=== PATIENT | female | born 1990 | race Caucasian/White ===

== ENCOUNTER → 2017-02-22 | Outpatient (CLI) | payer MEDICAID | END | disposition home or self-care (01) | LOC: MW.CHFP 14:40 | PROVIDERS: ATTEND Student in an Organized Health Care Education/Training Program | DX: R82.71 Bacteriuria (principal) | CPT/HCPCS: 81001 ==

== ENCOUNTER 2017-08-10 07:13 | Day surgery (SDC) | payer MEDICAID ==
[~2017-08-10 07:13] MED LIST: Lactated Ringers 1,000 ML IV SCH; ceFAZolin 2 GM in Premix Bag 1 BAG IV ONE
[2017-08-10] MEDS ORDERED: Ondansetron 4 MG/2 ML SDV ONE (07:36)
[2017-08-10] MEDS ORDERED: Propofol 200 MG/20 ML SDV ONE (07:37)
[2017-08-10] MEDS ORDERED: Midazolam 1 MG/ML 2 ML SDV ONE (07:37)
[2017-08-10] MEDS ORDERED: fentaNYL 100 MCG/2 ML SDV ONE ×2 (07:37→09:52)
[2017-08-10] MEDS ORDERED: Scopolamine 1.5 MG Transdermal Patch TRDERM PRN (08:21)
--- NOTE | 2017-08-10 08:22 | PCM.PREANE ---
Preanesthetic Assessment - Anesthesia/Transfusion/Family Hx Anesthesia History: Prior Anesthesia Without Reaction Family History of Anesthesia Reaction: No Transfusion History: No Prior Transfusion(s) - Review of Systems General: No Symptoms Pulmonary: No Symptoms Cardiovascular: No Symptoms Gastrointestinal: No Symptoms Neurological: No Symptoms Other: Reports: None - Physical Assessment NPO Status Date: 08/09/17 O2 Sat by Pulse Oximetry: 97 Respiratory Rate: 16 Vital Signs: Last Vital Signs Temp 36.2 C 08/10/17 07:28 Pulse 76 08/10/17 07:28 Resp 16 08/10/17 07:28 BP 114/62 08/10/17 07:28 Pulse Ox 97 08/10/17 07:28 Height: 1.63 m Weight: 78.471 kg ASA Class: 2 Mental Status: Alert & Oriented x3 Airway Class: Mallampati = 1 Dentition: Reports: Normal Dentition ROM/Head Extension: Full Lungs: Clear to Auscultation, Normal Respiratory Effort Cardiovascular: Regular Rate, Regular Rhythm - Lab Values: Laboratory Last Values Urine HCG, Qual NEGATIVE (NEGATIVE) 08/10/17 07:16 - Allergies Allergies/Adverse Reactions: Allergies Allergy/AdvReac Type Severity Reaction Status Date / Time tramadol Allergy Itching Verified 05/15/16 19:42 - Anesthesia Plan Pre-Op Medication Ordered: Other (scop) - Acknowledgements Anesthesia Type Planned: General Anesthesia Pt an Appropriate Candidate for the Planned Anesthesia: Yes Alternatives and Risks of Anesthesia Discussed w Pt/Guardian: Yes Pt/Guardian Understands and Agrees with Anesthesia Plan: Yes PreAnesthesia Questionnaire HEENT History: Reports: Other (See Below) Other HEENT History: wears glasses/contacts Cardiovascular History: Reports: None Respiratory History: Reports: None Gastrointestinal History: Reports: GERD 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: Musculoskeletal History: Reports: Back Pain, Chronic Neurological History: Reports: None Psychiatric History: Reports: None Endocrine/Metabolic History: Reports: None Hematologic History: Reports: None Oncologic (Cancer) History: Reports: None Dermatologic History: Reports: None - Infectious Disease History Infectious Disease History: Reports: None - Past Surgical History Head Surgeries/Procedures: Reports: None HEENT Surgical History: Reports: Oral Surgery, Tonsillectomy Musculoskeletal Surgical History: Reports: Other (See Below) Other Musculoskeletal Surgeries/Procedures:: sprained tendon on left ring finger - SUBSTANCE USE Smoking Status *Q: Current Every Day Smoker Tobacco Use Within Last Twelve Months: Cigarettes Days Per Week of Alcohol Use: 0 Recreational Drug Use History: No - HOME MEDS Home Medications: Home Meds Acetaminophen with Codeine [Tylenol with Codeine #3 Tablet] 1 - 2 tab PO ASDIRECTED PRN 08/06/17 [History] - CURRENT (IN HOUSE) MEDS Current Meds: Current Medications Lactated Ringer's (Ringers, Lactated) 1,000 mls @ 125 mls/hr IV ASDIRECTED KEMAL Last Admin: 08/10/17 07:25 Dose: 125 mls/hr Discontinued Medications Fentanyl (Sublimaze) Confirm Administered Dose 200 mcg .ROUTE .STK-MED ONE Stop: 08/10/17 07:38 Cefazolin Sodium/Dextrose 2 gm (/ Premix) 50 mls @ 100 mls/hr IV ONETIME ONE Stop: 08/10/17 05:29 Lidocaine HCl (Xylocaine-Mpf 1%) Confirm Administered Dose 5 ml .ROUTE .STK-MED ONE Stop: 08/10/17 07:37 Midazolam HCl (Versed 1 Mg/Ml) Confirm Administered Dose 2 mg .ROUTE .STK-MED ONE Stop: 08/10/17 07:38 Ondansetron HCl (Zofran) Confirm Administered Dose 4 mg .ROUTE .STK-MED ONE Stop: 08/10/17 07:37 Propofol (Diprivan 20 Ml) Confirm Administered Dose 200 mg .ROUTE .STK-MED ONE Stop: 08/10/17 07:38
[2017-08-10] MEDS ORDERED: Acetaminophen/oxyCODONE 325-5 MG Tab PO ONE (08:58)
[2017-08-10] MEDS ORDERED: Rocuronium 10 MG/ML 10 ML Syringe ONE (09:01)
[2017-08-10] MEDS ORDERED: Succinylcholine/Normal Saline 200 MG/10 ML Syringe ONE (09:01)
[2017-08-10] MEDS ORDERED: ceFAZolin 1 GM Vial ONE (09:50)
[2017-08-10] MEDS ORDERED: Dexamethasone 4 MG/ML 5 ML MDV ONE (09:51)
[2017-08-10] MEDS ORDERED: Neostigmine Methylsulfate 1 MG/ML 5 ML Syringe ONE (09:57)
[2017-08-10] MEDS ORDERED: Ketorolac 30 MG/ML SDV ONE (10:02)
--- NOTE | 2017-08-10 10:34 | PCM.OPNOTE ---
- General Post-Op/Procedure Note Date of Surgery/Procedure: 08/10/17 Operative Procedure(s): lap chico Findings: gb is yellow and green, cw chronic cholecystitis, wall is not thickened;dict [id number] Pre Op Diagnosis: biliary dyskinesia Post-Op Diagnosis: chronic cholecystitis Anesthesia Technique: General ET Tube Primary Surgeon: Rex Perez Pathology: sent Complications: None Condition: Good
[2017-08-10] MEDS ORDERED: Acetaminophen 1,000 MG in Premix Bag 1 BAG IV ONE (11:06)
--- NOTE | 2017-08-10 11:06 | PCM.POSTAN ---
POST ANESTHESIA ASSESSMENT - MENTAL STATUS Mental Status: Alert, Oriented - RESPIRATORY Respiratory Status: Respiratory Rate WNL, Airway Patent, O2 Saturation Stable - CARDIOVASCULAR CV Status: Pulse Rate WNL, Blood Pressure Stable - GASTROINTESTINAL GI Status: No Symptoms - POST OP HYDRATION Hydration Status: Adequate & Stable
--- NOTE | 2017-08-10 11:53 | OR ---
SURGEON: Rex Perez MD DATE OF PROCEDURE: 08/10/2017 PREOPERATIVE DIAGNOSIS: Biliary dyskinesia. POSTOPERATIVE DIAGNOSIS: Chronic cholecystitis. COMPLICATIONS: None. PROCEDURE PERFORMED: Laparoscopic cholecystectomy. FINDINGS: Gallbladder is yellow and green consistent with chronic cholecystitis. Wall is not thickened. PROCEDURE IN DETAIL: The patient was taken to the operating room and placed in the supine position. After the intubation of general endotracheal anesthesia, the patient's abdomen was prepped and draped in the usual sterile fashion. Using Moovlyview, a 12 mm trocar was placed supraumbilically and then followed with pneumoperitoneum. A 5 mm trocar was placed in the epigastrium and two 5 mm trocars placed in the right upper quadrant. The placement of the last three trocars was done under direct video supervision. Upon gaining entrance to the abdominal cavity, an extensive examination was then performed. The gallbladder was located and identified and retracted to the dome of the liver at the triangle of Calot. The cystic duct was clipped three more times and then using the endoscopic clip, was transected with placement of the endoscopic clip and transection was performed with care, ensuring the posterior prong of the instruments were clearly visualized prior to exercising the procedure. The gallbladder was dissected using electrocautery out of the liver bed and then removed using endoscopic bag through the umbilical site. The gallbladder was removed en bloc and there was no bile spillage and this was then followed with extensive irrigation until the bile was clear from blood and bile. The trocars were then removed under direct video supervision. The 12 mm umbilical site was then closed with deep stitches using 0 Vicryl followed with proximal stitches using 3-0 Vicryl and Dermabond. The other three trocar sites were closed with 3-0 Vicryl followed with approximation of skin with Dermabond. The patient was then awakened and extubated and transferred to the recovery room in hemodynamically stable condition. At the conclusion of the surgery, before closing the abdominal wound, instrument count and sponge count were done and were correct. The patient tolerated the procedure well and there were no intraoperative complications. Dr. Perez was present through the whole procedure. Just before surgery, a timeout was called. The patient was identified and procedure identified and procedure started. At the conclusion of the surgery, Surgicel was placed for hemostasis prior to closing the port. As always, thank you for the kind referral. SAULO TUCKER /[id number]
--- NOTE | 2017-08-10 11:56 | PCM48HPAN ---
Post Anesthesia Note - EVALUATION WITHIN 48HRS OF ANESTHETIC Vital Signs in Normal Range: Yes Patient Participated in Evaluation: Yes Respiratory Function Stable: Yes Airway Patent: Yes Cardiovascular Function Stable: Yes Hydration Status Stable: Yes Pain Control Satisfactory: Yes Nausea and Vomiting Control Satisfactory: Yes Mental Status Recovered: Yes
[2017-08-10 11:57] VITALS: BP 114/74
== END 2017-08-10 12:00 | disposition home or self-care (01) ==
LOC: MW.SDS 07:13
PROVIDERS: ATTEND Surgery
DX: K81.1 Chronic cholecystitis (principal); F17.210 Nicotine dependence, cigarettes, uncomplicated; Z86.19 Personal history of other infectious and parasitic diseases; Z87.442 Personal history of urinary calculi; Z88.8 Allergy status to other drugs, medicaments and biological substances; Z90.89 Acquired absence of other organs; Z98.890 Other specified postprocedural states
CPT/HCPCS: 47562; 81025; A9270; J0690; J1100; J1885; J2250; J2405; J3010; J7120; 00790; 88304; J2704

== ENCOUNTER 2017-12-18 08:51 | Emergency (ER) | payer MEDICAID ==
[2017-12-18] MEDS ORDERED: Sodium Chloride 0.9% 1,000 ML IV ONE (08:56)
[2017-12-18] MEDS ORDERED: Ondansetron 4 MG/2 ML SDV IVPUSH ONE (08:56)
--- NOTE | 2017-12-18 08:58 | EDM.PDOC ---
ED HPI GENERAL MEDICAL PROBLEM - General Chief Complaint: Abdominal Pain Stated Complaint: abdominal and back pain Time Seen by Provider: 12/18/17 08:57 Source of Information: Reports: Patient - History of Present Illness INITIAL COMMENTS - FREE TEXT/NARRATIVE: HISTORY AND PHYSICAL: History of present illness: [ Patient presents with abdominal pain that began this morning she has history of recent cholecystectomy over the last few months performed by Dr. Duran here in [facility]. This morning she awoke she has not eaten anything today she states that she had some right and left upper quadrant pain was very severe upon awakening 8 out of 10 nonradiating it has improved since to a 4 out of 10 no fever nausea vomiting diarrhea constipation chest pain shortness breath headache dizziness palpitation no bowel or urine symptoms ] Review of systems: As per history of present illness and below otherwise all systems reviewed and negative. Past medical history: As per history of present illness and as reviewed below otherwise noncontributory. Surgical history: As per history of present illness and as reviewed below otherwise noncontributory. Social history: No reported history of drug or alcohol abuse. Family history: As per history of present illness and as reviewed below otherwise noncontributory. Physical exam: HEENT: Atraumatic, normocephalic, pupils reactive, negative for conjunctival pallor or scleral icterus, mucous membranes moist, throat clear, neck supple, nontender, trachea midline. Lungs: Clear to auscultation, breath sounds equal bilaterally, chest nontender. Heart: S1S2, regular, negative for clicks, rubs, or JVD. Abdomen: Soft, nondistended, nontender. Negative for masses or hepatosplenomegaly. Negative for costovertebral tenderness. Pelvis: Stable nontender. Genitourinary: Deferred. Rectal: Deferred. Extremities: Atraumatic, negative for cords or calf pain. Neurovascular unremarkable. Neuro: Awake, alert, oriented. Cranial nerves II through XII unremarkable. Cerebellum unremarkable. Motor and sensory unremarkable throughout. Exam nonfocal. Diagnostics: [CBC CMP UA hCG CT abdomen pelvis with contrast ] Therapeutics: [Liter normal saline bolus Zofran 8 mg IV Toradol 30 mg IV ] Impression: [Colicky Abdominal pain Ovarian cyst on the right] Definitive disposition and diagnosis as appropriate pending reevaluation and review of above. upper abdomen Pain Score (Numeric/FACES): 4 - Related Data Allergies Allergy/AdvReac Type Severity Reaction Status Date / Time tramadol Allergy Itching Verified 12/18/17 09:01 Home Meds: Home Meds . 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: Musculoskeletal History: Reports: Back Pain, Chronic Neurological History: Reports: None Psychiatric History: Reports: None Endocrine/Metabolic History: Reports: None Hematologic History: Reports: None Oncologic (Cancer) History: Reports: None Dermatologic History: Reports: None - Infectious Disease History Infectious Disease History: Reports: None - Past Surgical History Head Surgeries/Procedures: Reports: None HEENT Surgical History: Reports: Oral Surgery, Tonsillectomy Musculoskeletal Surgical History: Reports: Other (See Below) Other Musculoskeletal Surgeries/Procedures:: sprained tendon on left ring finger Social & Family History - Tobacco Use Smoking Status *Q: Current Every Day Smoker Years of Tobacco use: 9 - Alcohol Use Days Per Week of Alcohol Use: 0 - Recreational Drug Use Recreational Drug Use: No ED ROS GENERAL - Review of Systems Review Of Systems: ROS reveals no pertinent complaints other than HPI. ED EXAM, GENERAL - Physical Exam Exam: See Below Course - Vital Signs Last Recorded V/S: Last Vital Signs Temp 96.8 F 12/18/17 08:58 Pulse 63 12/18/17 08:58 Resp 18 12/18/17 08:58 BP 126/81 12/18/17 08:58 Pulse Ox 97 12/18/17 08:58 - Orders/Labs/Meds Orders: Active Orders 24 hr Category Date Time Status Abdomen Pelvis w Cont [CT] Stat Exams 12/18/17 08:56 Taken Labs: Laboratory Tests 12/18/17 12/18/17 12/18/17 Range/Units 09:00 09:00 09:08 WBC 5.57 (4.0-11.0) K/uL RBC 4.31 (4.30-5.90) M/uL Hgb 14.1 (12.0-16.0) g/dL Hct 41.3 (36.0-46.0) % MCV 95.8 (80.0-98.0) fL MCH 32.7 H (27.0-32.0) pg MCHC 34.1 (31.0-37.0) g/dL RDW Std Deviation 42.7 (28.0-62.0) fl RDW Coeff of Katharine 12 (11.0-15.0) % Plt Count 237 (150-400) K/uL MPV 9.40 (7.40-12.00) fL Neut % (Auto) 60.4 (48.0-80.0) % Lymph % (Auto) 22.8 (16.0-40.0) % Loving % (Auto) 14.4 (0.0-15.0) % Eos % (Auto) 2.2 (0.0-7.0) % Baso % (Auto) 0.2 (0.0-1.5) % Neut # (Auto) 3.4 (1.4-5.7) K/uL Lymph # (Auto) 1.3 (0.6-2.4) K/uL Loving # (Auto) 0.8 (0.0-0.8) K/uL Eos # (Auto) 0.1 (0.0-0.7) K/uL Baso # (Auto) 0.0 (0.0-0.1) K/uL Nucleated RBC % 0.0 /100WBC Nucleated RBCs # 0 K/uL Sodium (136-146) mmol/L Potassium (3.5-5.1) mmol/L Chloride (98-110) mmol/L Carbon Dioxide (21-31) mmol/L BUN (6.0-23.0) mg/dL Creatinine (0.6-1.5) mg/dL Est Cr Clr Drug Dosing mL/min Estimated GFR (MDRD) ml/min Glucose (60-110) mg/dL Calcium (8.8-10.8) mg/dL Total Bilirubin (0.1-1.5) mg/dL AST (5-40) IU/L ALT (8-54) IU/L Alkaline Phosphatase (40-150) Total Protein (6.0-8.0) g/dL Albumin (3.5-5.0) g/dL Globulin (2.0-3.5) g/dL Albumin/Globulin Ratio (1.3-2.8) Amylase (10-90) U/L Lipase (7-80) U/L Urine Color YELLOW Urine Appearance CLEAR Urine pH 6.5 (5.0-8.0) Ur Specific Singer 1.020 (1.001-1.035) Urine Protein NEGATIVE (NEGATIVE) mg/dL Urine Glucose (UA) NEGATIVE (NEGATIVE) mg/dL Urine Ketones NEGATIVE (NEGATIVE) mg/dL Urine Occult Blood NEGATIVE (NEGATIVE) Urine Nitrite NEGATIVE (NEGATIVE) Urine Bilirubin NEGATIVE (NEGATIVE) Urine Urobilinogen 0.2 (<2.0) EU/dL Ur Leukocyte Esterase NEGATIVE (NEGATIVE) Urine RBC 0-3 (0-2/HPF) Urine WBC 0-1 (0-5/HPF) Ur Epithelial Cells RARE (NONE-FEW) Urine Bacteria FEW (NEGATIVE) Urine HCG, Qual NEGATIVE (NEGATIVE) 12/18/17 Range/Units 09:08 WBC (4.0-11.0) K/uL RBC (4.30-5.90) M/uL Hgb (12.0-16.0) g/dL Hct (36.0-46.0) % MCV (80.0-98.0) fL MCH (27.0-32.0) pg MCHC (31.0-37.0) g/dL RDW Std Deviation (28.0-62.0) fl RDW Coeff of Katharine (11.0-15.0) % Plt Count (150-400) K/uL MPV (7.40-12.00) fL Neut % (Auto) (48.0-80.0) % Lymph % (Auto) (16.0-40.0) % Loving % (Auto) (0.0-15.0) % Eos % (Auto) (0.0-7.0) % Baso % (Auto) (0.0-1.5) % Neut # (Auto) (1.4-5.7) K/uL Lymph # (Auto) (0.6-2.4) K/uL Loving # (Auto) (0.0-0.8) K/uL Eos # (Auto) (0.0-0.7) K/uL Baso # (Auto) (0.0-0.1) K/uL Nucleated RBC % /100WBC Nucleated RBCs # K/uL Sodium 138 (136-146) mmol/L Potassium 4.1 (3.5-5.1) mmol/L Chloride 108 (98-110) mmol/L Carbon Dioxide 21 (21-31) mmol/L BUN 12 (6.0-23.0) mg/dL Creatinine 0.7 (0.6-1.5) mg/dL Est Cr Clr Drug Dosing 102.40 mL/min Estimated GFR (MDRD) > 60.0 ml/min Glucose 81 (60-110) mg/dL Calcium 9.1 (8.8-10.8) mg/dL Total Bilirubin 1.0 (0.1-1.5) mg/dL AST 24 (5-40) IU/L ALT 24 (8-54) IU/L Alkaline Phosphatase 66 (40-150) Total Protein 6.7 (6.0-8.0) g/dL Albumin 4.3 (3.5-5.0) g/dL Globulin 2.4 (2.0-3.5) g/dL Albumin/Globulin Ratio 1.8 (1.3-2.8) Amylase 47 (10-90) U/L Lipase 12 (7-80) U/L Urine Color Urine Appearance Urine pH (5.0-8.0) Ur Specific Singer (1.001-1.035) Urine Protein (NEGATIVE) mg/dL Urine Glucose (UA) (NEGATIVE) mg/dL Urine Ketones (NEGATIVE) mg/dL Urine Occult Blood (NEGATIVE) Urine Nitrite (NEGATIVE) Urine Bilirubin (NEGATIVE) Urine Urobilinogen (<2.0) EU/dL Ur Leukocyte Esterase (NEGATIVE) Urine RBC (0-2/HPF) Urine WBC (0-5/HPF) Ur Epithelial Cells (NONE-FEW) Urine Bacteria (NEGATIVE) Urine HCG, Qual (NEGATIVE) Meds: Medications Discontinued Medications Generic Name Dose Route Start Last Admin Trade Name Freq PRN Reason Stop Dose Admin Sodium Chloride 1,000 mls @ 999 mls/hr 12/18/17 08:56 12/18/17 09:13 Normal Saline IV 12/18/17 09:56 999 mls/hr STAT ONE Administration Ondansetron HCl 8 mg 12/18/17 08:56 12/18/17 09:13 Zofran IVPUSH 12/18/17 08:57 8 mg ONETIME ONE Administration Departure - Departure Time of Disposition: 11:04 Disposition: Home, Self-Care 01 Condition: Good Clinical Impression: Abdominal pain - Discharge Information Referrals: Diana Beebe NP [Primary Care Provider] - Forms: ED Department Discharge Additional Instructions: Toradol Reglan Medications as directed Gas-X 120 mg 4 times daily as needed may benefit 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 This information is to outline your options for follow-up care. We provide all patients seen in our emergency department with a follow-up referral. The need for follow-up, as well as the timing and circumstances, are variable depending upon the specifics of your emergency department visit. If you don't have a primary care physician on staff, we will provide you with a referral. We always advise you to contact your personal physician following an emergency department visit to inform them of the circumstance of the visit and for follow-up with them and/or the need for any referrals to a consulting specialist. The emergency department will also refer you to a specialist when appropriate. This referral assures that you have the opportunity for follow-up care with a specialist. All of these measure are taken in an effort to provide you with optimal care, which includes your follow-up. Under all circumstances we always encourage you to contact your private physician who remains a resource for coordinating your care. When calling for follow-up care, please make the office aware that this follow-up is from your recent emergency room visit. If for any reason you are refused follow-up, please contact the [facility] emergency department at and asked to speak to the emergency department charge nurse. - My Orders Last 24 Hours: My Active Orders 12/18/17 08:56 Abdomen Pelvis w Cont [CT] Stat - Assessment/Plan Last 24 Hours: My Active Orders 12/18/17 08:56 Abdomen Pelvis w Cont [CT] Stat
[2017-12-18 09:38] LABS: CHLORIDE,CL 108 mmol/L (98-110); SODIUM,NA 138 mmol/L (136-146)
[2017-12-18 11:19] VITALS: BP 111/77
--- NOTE | 2017-12-20 17:12 | CT ---
EXAM DATE: 12/18/17 PATIENT'S AGE: 27 Patient: LIBORIO HAYDEN Facility: [place], [place] Site . Site : 1990 Study: CT Abdomen/Pelvis [id number]/[id number] 10:24:06 AM Ordering Physician: Doctor Murdock Final Report: INDICATION: ABD/PEL PAIN BILATERALLY INDICATION: Abdominal pain bilaterally. TECHNIQUE: 3 mm axial imaging has been performed through the abdomen and pelvis after IV contrast. Sagittal and coronal reconstructions have been obtained. Comparison: 06/22/2017 Findings: In the left lung base there is some mild posterior increased density favored represent some dependent atelectasis. The liver, spleen, pancreas, bilateral adrenal glands are within normal limits. The kidneys demonstrate symmetric enhancement bilaterally. The retrocrural region and retroperitoneum demonstrate no significant lymphadenopathy. Iliac harvinder chain and groin demonstrate no significant lymphadenopathy. There is no evidence for bowel obstruction. Air-filled partially visualized appendix is identified and images 100-103. IUD is in place. Enlargement of the right ovary persists with a 4.7 x 2.7 cm low-dense cystic lesion present. This is slightly smaller. Left ovary is unremarkable. Significant retained stool identified within the colon. No evidence for bowel obstruction. No significant free fluid is seen. No abscess or free air is seen. IMPRESSION: 1. There is persistent prominence of the right ovary at 4.7 x 2.7 cm. This is slightly smaller in size from the prior study of May 2017. 2. IUD is in place. 3. No evidence for bowel obstruction. 4. The upper abdominal organ survey is within normal limits. Dictated by Dominick Reyes MD @ 12/18/2017 10:54:35 AM Dictated by: Dominick Reyes MD @ 12/18/2017 10:54:40 (Electronic Signature) Report Signed by Proxy. [facility]in[facility]
== END 2017-12-18 11:15 | disposition home or self-care (01) ==
LOC: MW.ED 08:51
DX: N83.201 Unspecified ovarian cyst, right side (principal); F17.210 Nicotine dependence, cigarettes, uncomplicated; Z88.5 Allergy status to narcotic agent
CPT/HCPCS: 74177; 80053; 81001; 81025; 82150; 83690; 85025; 96361; 96374; 99284; J2405; J7040

== ENCOUNTER 2017-12-22 20:45 | Emergency (ER) | payer MEDICAID ==
[2017-12-22] MEDS ORDERED: Alum Hydrox/Mag Hydrox/Simeth 15 ML, Metoclopramide 5 MG, Lidocaine 2% 5 ML PO ONE ×3 (20:52)
[2017-12-22] MEDS ORDERED: Sodium Chloride 0.9% 1,000 ML IV ONE (20:52)
[2017-12-22] MEDS ORDERED: Pantoprazole 40 MG Vial IVPUSH ONE (20:52)
--- NOTE | 2017-12-22 20:53 | EDM.PDOC ---
ED HPI GENERAL MEDICAL PROBLEM - General Stated Complaint: BACK AND STOMACH PAIN Time Seen by Provider: 12/22/17 20:53 Source of Information: Reports: Patient - History of Present Illness INITIAL COMMENTS - FREE TEXT/NARRATIVE: HISTORY AND PHYSICAL: History of present illness: [Patient presents with colicky abdominal pain 8 out of 10 pain she called EMS on presentation, she has been taking some oxycodone left over from cholecystectomy from previous which is compounding her problem of constipation and gassy distention leading to more pain. She does have some diclofenac at her disposal she states this works better than the previous Toradol and continues Gas-X She has not tried any MiraLAX as reviewed previously discussed recommend clear liquids MiraLAX Gas-X and Reglan until she clears she is having bowel movements but is on the constipated side if she has been using the oxycodone for pain compounding her problem. No fever nausea vomiting chills sweats no chest pain shortness breath headache dizziness or palpitation no urine symptoms No apparent distress no pain behaviors Patient improved with treatment below pain is 1 out of 10 no further belching] Review of systems: As per history of present illness and below otherwise all systems reviewed and negative. Past medical history: As per history of present illness and as reviewed below otherwise noncontributory. Surgical history: As per history of present illness and as reviewed below otherwise noncontributory. Social history: No reported history of drug or alcohol abuse. Family history: As per history of present illness and as reviewed below otherwise noncontributory. Physical exam: HEENT: Atraumatic, normocephalic, pupils reactive, negative for conjunctival pallor or scleral icterus, mucous membranes moist, throat clear, neck supple, nontender, trachea midline. Lungs: Clear to auscultation, breath sounds equal bilaterally, chest nontender. Heart: S1S2, regular, negative for clicks, rubs, or JVD. Abdomen: Soft, nondistended, nontender. Negative for masses or hepatosplenomegaly. Negative for costovertebral tenderness. Pelvis: Stable nontender. Genitourinary: Deferred. Rectal: Deferred. Extremities: Atraumatic, negative for cords or calf pain. Neurovascular unremarkable. Neuro: Awake, alert, oriented. Cranial nerves II through XII unremarkable. Cerebellum unremarkable. Motor and sensory unremarkable throughout. Exam nonfocal. Diagnostics: Lab on file from 12/18/2017 CT abdomen pelvis on file from 12/18/2017 [CBC BMP UA lipase] Therapeutics: [GI cocktail Proton X 80 mg IV Toradol 30 mg IV Reglan 5 mg IV Flat and upright abdomen plain films ] Impression: [Abdominal pain Known ovarian cyst] Definitive disposition and diagnosis as appropriate pending reevaluation and review of above. abdomen Pain Score (Numeric/FACES): 6 Post Neck Pain Score (Numeric/FACES): 7 - Related Data Allergies Allergy/AdvReac Type Severity Reaction Status Date / Time tramadol Allergy Itching Verified 12/22/17 20:56 Home Meds: Home Meds . [No Known Home Meds] 12/18/17 [History] Past Medical History HEENT History: Reports: Other (See Below) Other HEENT History: wears glasses/contacts Cardiovascular History: Reports: None Respiratory History: Reports: None Gastrointestinal History: Reports: GERD Genitourinary History: Reports: Renal Calculus MONITOR TECH History: Reports: Musculoskeletal History: Reports: Back Pain, Chronic Neurological History: Reports: None Psychiatric History: Reports: None Endocrine/Metabolic History: Reports: None Hematologic History: Reports: None Oncologic (Cancer) History: Reports: None Dermatologic History: Reports: None - Infectious Disease History Infectious Disease History: Reports: None - Past Surgical History Head Surgeries/Procedures: Reports: None HEENT Surgical History: Reports: Oral Surgery, Tonsillectomy Musculoskeletal Surgical History: Reports: Other (See Below) Other Musculoskeletal Surgeries/Procedures:: sprained tendon on left ring finger Social & Family History - Family History Family Medical History: Noncontributory - Tobacco Use Smoking Status *Q: Current Every Day Smoker Years of Tobacco use: 9 Packs/Tins Daily: 0.3 - Caffeine Use Caffeine Use: Reports: Energy Drinks, Soda - Alcohol Use Days Per Week of Alcohol Use: 0 - Recreational Drug Use Recreational Drug Use: No ED ROS GENERAL - Review of Systems Review Of Systems: ROS reveals no pertinent complaints other than HPI. ED EXAM, GENERAL - Physical Exam Exam: See Below Course - Vital Signs Last Recorded V/S: Last Vital Signs Temp 98.5 F 12/22/17 20:45 Pulse 81 12/22/17 20:45 Resp 18 12/22/17 20:45 BP 119/79 12/22/17 20:45 Pulse Ox 98 12/22/17 20:45 - Orders/Labs/Meds Orders: Active Orders 24 hr Category Date Time Status Abdomen 2V AP Flat Upright [CR] Stat Exams 12/22/17 20:54 Taken Labs: Laboratory Tests 12/22/17 12/22/17 12/22/17 Range/Units 21:01 21:01 21:49 WBC 3.72 L (4.0-11.0) K/uL RBC 4.12 L (4.30-5.90) M/uL Hgb 13.2 (12.0-16.0) g/dL Hct 39.2 (36.0-46.0) % MCV 95.1 (80.0-98.0) fL MCH 32.0 (27.0-32.0) pg MCHC 33.7 (31.0-37.0) g/dL RDW Std Deviation 42.7 (28.0-62.0) fl RDW Coeff of Katharine 12 (11.0-15.0) % Plt Count 193 (150-400) K/uL MPV 9.30 (7.40-12.00) fL Neut % (Auto) 77.1 (48.0-80.0) % Lymph % (Auto) 12.6 L (16.0-40.0) % [place] % (Auto) 9.7 (0.0-15.0) % Eos % (Auto) 0.3 (0.0-7.0) % Baso % (Auto) 0.3 (0.0-1.5) % Neut # (Auto) 2.9 (1.4-5.7) K/uL Lymph # (Auto) 0.5 L (0.6-2.4) K/uL [place] # (Auto) 0.4 (0.0-0.8) K/uL Eos # (Auto) 0.0 (0.0-0.7) K/uL Baso # (Auto) 0.0 (0.0-0.1) K/uL Nucleated RBC % 0.0 /100WBC Nucleated RBCs # 0 K/uL Sodium 139 (136-146) mmol/L Potassium 3.9 (3.5-5.1) mmol/L Chloride 110 (98-110) mmol/L Carbon Dioxide 20 L (21-31) mmol/L BUN 15 (6.0-23.0) mg/dL Creatinine 0.6 (0.6-1.5) mg/dL Est Cr Clr Drug Dosing 119.47 mL/min Estimated GFR (MDRD) > 60.0 ml/min Glucose 96 (60-110) mg/dL Calcium 8.2 L (8.8-10.8) mg/dL Lipase < 9 (7-80) U/L Urine Opiates Screen POSITIVE (NEGATIVE) Ur Oxycodone Screen NEGATIVE (NEGATIVE) Urine Methadone Screen NEGATIVE (NEGATIVE) Ur Barbiturates Screen NEGATIVE (NEGATIVE) Ur Phencyclidine Scrn NEGATIVE (NEGATIVE) Ur Amphetamine Screen NEGATIVE (NEGATIVE) U Methamphetamines Scrn NEGATIVE (NEGATIVE) U Benzodiazepines Scrn NEGATIVE (NEGATIVE) U Cocaine Metab Screen NEGATIVE (NEGATIVE) U Marijuana (THC) Screen NEGATIVE (NEGATIVE) Meds: Medications Discontinued Medications Generic Name Dose Route Start Last Admin Trade Name Freq PRN Reason Stop Dose Admin Al Hydroxide/Mg Hydroxide 15 0 ml 12/22/17 20:52 ml/ Metoclopramide HCl 5 mg/ PO 12/22/17 20:53 Lidocaine HCl 5 ml ONETIME ONE Sodium Chloride 1,000 mls @ 999 mls/hr 12/22/17 20:52 12/22/17 21:23 Normal Saline IV 12/22/17 21:52 999 mls/hr STAT ONE Administration Ketorolac Tromethamine 30 mg 12/22/17 20:55 12/22/17 21:24 Toradol IVPUSH 12/22/17 20:56 30 mg ONETIME ONE Administration Metoclopramide HCl 5 mg 12/22/17 21:00 12/22/17 21:23 Reglan IV 12/22/17 21:01 5 mg ONETIME ONE Administration Pantoprazole Sodium 80 mg 12/22/17 20:52 12/22/17 21:23 Protonix Iv IVPUSH 12/22/17 20:53 80 mg .BOLUS ONE Administration Departure - Departure Time of Disposition: 22:31 Disposition: Home, Self-Care 01 Condition: Good Clinical Impression: Abdominal pain - Discharge Information Referrals: PCP,Unknown [Primary Care Provider] - Additional Instructions: The following information is given to patients seen in the emergency department who are being discharged to home. This information is to outline your options for follow-up care. We provide all patients seen in our emergency department with a follow-up referral. The need for follow-up, as well as the timing and circumstances, are variable depending upon the specifics of your emergency department visit. If you don't have a primary care physician on staff, we will provide you with a referral. We always advise you to contact your personal physician following an emergency department visit to inform them of the circumstance of the visit and for follow-up with them and/or the need for any referrals to a consulting specialist. The emergency department will also refer you to a specialist when appropriate. This referral assures that you have the opportunity for follow-up care with a specialist. All of these measure are taken in an effort to provide you with optimal care, which includes your follow-up. Under all circumstances we always encourage you to contact your private physician who remains a resource for coordinating your care. When calling for follow-up care, please make the office aware that this follow-up is from your recent emergency room visit. If for any reason you are refused follow-up, please contact the [facility] emergency department at and asked to speak to the emergency department charge nurse. - My Orders Last 24 Hours: My Active Orders 12/22/17 20:54 Abdomen 2V AP Flat Upright [CR] Stat - Assessment/Plan Last 24 Hours: My Active Orders 12/22/17 20:54 Abdomen 2V AP Flat Upright [CR] Stat
[2017-12-22] MEDS ORDERED: Ketorolac 30 MG/ML SDV IVPUSH ONE (20:55)
[2017-12-22] MEDS ORDERED: Metoclopramide 10 MG/2 ML SDV IV ONE (21:00)
[2017-12-22 21:47] LABS: CHLORIDE,CL 110 mmol/L (98-110); SODIUM,NA 139 mmol/L (136-146)
[2017-12-22] MEDS ORDERED: Alum Hydrox/Mag Hydrox/Simeth 15 ML, Lidocaine 2% 5 ML PO ONE ×2 (22:42)
[2017-12-22 22:55] VITALS: BP 138/79
--- NOTE | 2017-12-23 16:13 | CR ---
EXAM DATE: 12/22/17 PATIENT'S AGE: 27 Patient: LIBORIO HAYDEN Facility: [place], [place] Site . Site : 1990 Study: XRay Abdomen [id number]/24/2018 10:14:54 PM Ordering Physician: Gaurav Mendiola Final Report: Indication: Abdominal pain. Technique: Abdomen three views. Comparison: CT abdomen and pelvis 12/18/2017. Findings: The bowel gas pattern is nonobstructive. No evidence of free intraperitoneal gas. Fecal loading of the colon. Right upper quadrant surgical clips. Intrauterine device in the pelvis. Lung bases are grossly clear. Visualized osseous structures are intact. Impression: No evidence of acute disease. Dictated by Srinivasa Mendoza MD @ 12/22/2017 10:47:50 PM Dictated by: Srinivasa Mendoza MD @ 12/22/2017 22:47:56 (Electronic Signature) Report Signed by Proxy. [facility]
== END 2017-12-22 22:53 | disposition home or self-care (01) ==
LOC: MW.ED 20:45
DX: R10.84 Generalized abdominal pain (principal); Z88.5 Allergy status to narcotic agent; F17.210 Nicotine dependence, cigarettes, uncomplicated
CPT/HCPCS: 36415; 74019; 80048; 80305; 83690; 85025; 96361; 96374; 96375; 99284; A9270; C9113; J1885; J2765; J7040